=== PATIENT | female | born 1950 | race Caucasian/White ===

== ENCOUNTER → 2017-05-23 | Day surgery (SDC) | payer MEDICARE, OTHER ==
[~2017-05-23] VITALS: Ht 157.5 cm; Wt 78.6 kg
[~2017-05-23] MED LIST: ACETAMINOPHEN 500 MG CPLT PO PRN; ACYC800T PO; ALIR150P SQ; AMLO10TA2 PO; ATROPINE SULFATE 1% OPHT SOLN 2 ML BTL ONE; ATROPINE SULFATE 1% OPHT SOLN 5 ML BTL RIGHT EYE SCH; BALANCED SALT SOLN OPHT IRRIG 15 ML BTL ONE; CHLORHEXIDINE GLUCONATE 2 % 1 PACK (2 CLOTHS) TOPICAL PRN; CYCLOPENTOLATE HCL 1% OPHT SOLN 2 ML BTL RIGHT EYE SCH; DEXAMETHASONE SOD PHOS 4 MG/ML VIAL IV ONE; DEXAMETHASONE SOD PHOS 4 MG/ML VIAL ONE; DO NOT ADM ANY ANTICOAGULANT DRUGS PRN; EPINEPHrine HCL (1:1000) 1 MG/ML VIAL ONE; GLYCOPYRROLATE 1 MG/5 ML SYRINGE IV PUSH ONE; LACTATED RINGER'S 1000 ML IV PRN; LIDOCAINE HCL 1% PF 5 ML SYRINGE OTHER ONE; LORA-474 PO; METOPROLOL TARTRATE 25 MG TAB PO PRN; MIDAZOLAM HCL 2 MG/2 ML VIAL ONE; NEOSTIGMINE 5 MG/5 ML SYRINGE IV PUSH ONE; NEXI20CA PO; ONDANSETRON HCL 4 MG/2 ML VIAL IM PRN; ONDANSETRON HCL 4 MG/2 ML VIAL IV ONE; ONDANSETRON HCL 4 MG/2 ML VIAL IV PUSH PRN; PHENYLEPHRINE HCL 2.5% OPTH SOLN 2 ML BTL RIGHT EYE SCH; POVIDONE IODINE 5% (ANTISEPSIS KIT) 4 APPLICATIONS EACH NARE PRN; PROPOFOL 200 MG/20 ML AMP IV ONE; ROCURONIUM INJ 50 MG/5 ML SYRINGE IV PUSH ONE; SODIUM CHLORID 0.9% 500 ML IV PRN; STERILE WATER FOR INJECTION 20 ML VIAL ONE; TOBRAMYCIN/DEXAMETHASONE OPTH OINT 3.5 GM TUBE ONE; TRAZ1TAB14 PO; TRIAMCINOLONE ACETONIDE/PF 40 MG/ML OPTH VIAL ONE; TROPICAMIDE 1% OPHT SOLN 15 ML BTL RIGHT EYE SCH; VAGI10TA VAGINAL; VENL75TA PO; ceFAZolin INJ 1,000 MG VIAL ONE
[2017-05-23 07:40] LABS: AUTOMATED NEUTROPHIL # 3.5 TH/MM3 (1.8-7.7); BASOPHIL % 0.6 % (0.0-2.0); EOSINOPHIL # 0.2 TH/MM3 (0-0.4); EOSINOPHIL % 2.7 % (0.0-4.0); HEMATOCRIT 32.7 % (35.0-46.0); LYMPH % 32.1 % (9.0-44.0); MEAN CELL VOLUME 90.8 FL (80.0-100.0); MEAN CORPUSCULAR HEMOGLOBIN 30.6 PG (27.0-34.0); MEAN CORPUSCULAR HGB CONC 33.7 % (32.0-36.0); MEAN PLATELET VOLUME 7.2 FL (7.0-11.0); MONO % 8.6 % (0.0-8.0); MONOCYTE # 0.5 TH/MM3 (0-0.9); PLATELET COUNT 446 TH/MM3 (150-450); RED BLOOD COUNT 3.61 MIL/MM3 (4.00-5.30); RED CELL DISTRIBUTION WIDTH 17.1 % (11.6-17.2); WHITE BLOOD COUNT 6.3 TH/MM3 (4.0-11.0)
[2017-05-23 10:38] VITALS: BP 130/70; PULSE 78; RESP 20; TEMP 97.6; O2SAT 93
--- NOTE | 2017-05-23 19:41 | EKG ---
Date Performed: 05/23/2017 Time Performed: 07:07:05 PTAGE: 67 years EKG: Sinus rhythm MODERATE INTRAVENTRICULAR CONDUCTION DELAY ST DEVIATION AND MODERATE T-WAVE ABNORMALITY, CONSIDER AN TERIOR ISCHEMIA ABNORMAL ECG NO PREVIOUS TRACING DOCTOR: Yasmeen Glaser Interpretating Date/Time 05/23/2017 19:39:17
--- NOTE | 2017-05-24 22:30 | MP ---
cc: ARMAAN WHITE MD DATE OF SURGERY 05/23/17 PREOPERATIVE DIAGNOSIS Visually significant epiretinal membrane with macular pucker, right eye. POSTOPERATIVE DIAGNOSIS Visually significant epiretinal membrane with macular pucker, right eye. PROCEDURE Trans pars plana vitrectomy with membranectomy and air-fluid exchange, right eye. SURGEON Dr. Cinda White ANESTHESIA General endotracheal anesthesia INDICATIONS Ms. Echeverria is a 67-year-old woman with a history of decreased central vision in her right eye down to the 2200 level as well as distortion. She was found to have a epiretinal membrane with macular pucker and wished to proceed electively with vitrectomy, membranectomy to try and improve her visual functioning. The risks and benefits of surgery were discussed with the patient. Informed consent was obtained and no guarantee was made as to visual outcome. PROCEDURE IN DETAIL She was brought to [facility] operating room [facility] on the [facility]. Appropriate anesthesia monitoring devices were applied and she was placed under general anesthesia using endotracheal tube. The right eye was identified as the operative site and prepped and draped in the usual and sterile fashion. A lid speculum was placed. The microscope was brought around and adjusted. At this point. an appropriate time out was called with the surgical team agreeing to the surgical site and proposed procedure. Using the Shant 23-gauge valve cannulas system, the trocar cannulas were placed 3-1/2 mm posterior to the limbus after first displacing the conjunctiva and with a beveled entrance through the sclera. The first one was placed at approximately 9 o'clock and verified to be in the posterior chamber. Two additional trocar cannulas were placed at 10 and 2 o'clock. An infusion line was placed at the cannula at 9 o'clock and turned on. A small amount of Kenalog was placed into the posterior chamber. Using the flat contact lens, a core vitrectomy was carried out. The residual Kenalog was swept off the retinal surface using a soft tipped needle. Using the Jose Miguel membrane scraper, the membrane was approached at the superotemporal edge of the macula and then peeled inferiorly and nasally. It was removed with aspiration using the soft tipped linear extrusion needle. Next, the flat contact lens was switched to the BIOME wide angle viewing system and the peripheral vitreous was removed with a vitrectomy cutter. Using the indirect ophthalmoscope and scleral depression, the periphery was checked 360 degrees and no retinal breaks were found. Using the flat contact lens and the soft tipped linear extrusion needle, a partial air-fluid exchange was performed. The cannulas were then removed one by one with tamponade of the site with a cotton swab and diathermy to the overlying conjunctival wound. This left the eye with good pressure and no visible air leaks. Atropine drops were placed on the cornea followed by subconjunctival injections of Ancef 125 mg in 0.5 ml and Decadron 2 mg in 0.5 ml. The lid speculum was removed and the patient was undraped. TobraDex ointment was placed on the cornea and then the right eye was patched and shielded. The patient had the endotracheal tube removed in the room and was returned to recovery in good condition laying on her left side. When she is awake and cooperative, she will be asked to assume face down positioning. MD THOMAS Ridley/ /9:28 AM /10:18 PM
== END | disposition home or self-care (01) ==
LOC: HSDC 06:01 → EDSTATUS 08:00
PROVIDERS: ATTEND Ophthalmology
DX: H35.371 Puckering of macula, right eye (principal); I10 Essential (primary) hypertension
CPT/HCPCS: 00145; 67041; 85025; 93005; J0171; J0690; J1100; J2250; J2405; J2710; J3010; J3300